=== PATIENT | male | born 1965 | race Caucasian/White ===

== ENCOUNTER 2016-10-27 16:38 | Emergency (ER) | payer OTHER ==
[2016-10-27 16:39] VITALS: BMI 34.3
[2016-10-27 17:00] VITALS: O2SAT 98
--- NOTE | 2016-10-27 19:41 | C.PDOC ---
History Of Present Illness Patient presents to the ER with a complaint of a headache, photophobia, and abdominal pain for the past 3 weeks. Denies any nausea, vomiting, diarrhea, fever or chills. Time Seen by Provider: 10/27/16 19:41 Chief Complaint (Nursing): Headache History Per: Patient History/Exam Limitations: no limitations Onset/Duration Of Symptoms: Days (3 weeks) Severity: Moderate Pain Scale Rating Of: 4 Associated Symptoms: Photophobia. denies: Nausea, Vomiting Past Medical History Reviewed: Historical Data, Nursing Documentation, Vital Signs Vital Signs: Last Vital Signs Temp 98.1 F 10/27/16 16:58 Pulse 80 10/27/16 16:58 Resp 20 10/27/16 16:58 BP 132/82 10/27/16 16:58 Pulse Ox 98 10/27/16 20:18 Surgical History: Back Surgery Family History: States: No Known Family Hx - Social History Hx Tobacco Use: Yes (3 cig daily) Hx Alcohol Use: No Hx Substance Use: No - Immunization History Hx Tetanus Toxoid Vaccination: No Hx Influenza Vaccination: No Hx Pneumococcal Vaccination: No Review Of Systems Constitutional: Negative for: Fever, Chills Gastrointestinal: Positive for: Abdominal Pain. Negative for: Nausea, Vomiting , Diarrhea Physical Exam - Physical Exam Appears: Non-toxic Skin: Warm, Dry Oral Mucosa: Moist Chest: Symmetrical Cardiovascular: Rhythm Regular Respiratory: No Rales, No Rhonchi, No Wheezing Gastrointestinal/Abdominal: Soft, Tenderness (Mild, mid epigastric), No Distention, No Guarding, No Rebound Neurological/Psych: Oriented x3 ED Course And Treatment - Laboratory Results Result Diagrams: 10/27/16 19:59 10/27/16 19:59 ECG: Interpreted By Me, Viewed By Me ECG Rhythm: Sinus Rhythm (79), Nonspecific Changes O2 Sat by Pulse Oximetry: 98 (Room air) Pulse Ox Interpretation: Normal Progress Note: CT of head w/o contrast, urinalysis, and blood work ordered. Solu -medrol IVP and zofran IVP administered. Reevaluation Time: 22:21 Reassessment Condition: Improved Medical Decision Making Medical Decision Making: Upon provider reevaluation patient is feeling better, is medically stable, and requires no further treatment in the ED at this time. Patient will be discharged home with Rx for zofran and naproxyn. Counseling was provided and all questions were answered regarding diagnosis and need for follow up with the referred clinic. There is agreement to discharge plan. Return if symptoms persist or worsen. Disposition Counseled Patient/Family Regarding: Studies Performed, Diagnosis, Need For Followup, Rx Given - Disposition Referrals: [facility] [Outside] Disposition: HOME/ ROUTINE Disposition Time: 19:41 Condition: FAIR Prescriptions: Naproxen [Naprosyn] 1 tab PO BID PRN #25 tab PRN Reason: Pain Ondansetron ODT [Zofran ODT] 1 odt PO BID PRN #10 odt PRN Reason: Nausea/Vomiting Instructions: Acute Headache (DC), Abdominal Pain (ED), Gas and Bloating (ED) Print Language: TURKISH - Clinical Impression Clinical Impression: Headache, Abdominal pain - Scribe Statement The provider has reviewed the documentation as recorded by the Littleibmanpreet Masters All medical record entries made by the Littleibmanpreet were at my direction and personally dictated by me. I have reviewed the chart and agree that the record accurately reflects my personal performance of the history, physical exam, medical decision making, and the department course for this patient. I have also personally directed, reviewed, and agree with the discharge instructions and disposition.
[2016-10-27 20:02] LABS: BASO # 0.1 K/uL (0.0-0.2); BASO % 1.2 % (0.0-2.0); EOS # 0.2 K/uL (0.0-0.7); EOS % 2.3 % (0.0-4.0); HEMATOCRIT 43.1 % (35.0-51.0); LYMPH # 2.8 K/uL (1.0-4.3); MEAN CELL VOLUME 86.7 fL (80.0-94.0); MEAN CORPUSCULAR HEMOGLOBIN 29.7 pg (27.0-31.0); MEAN CORPUSCULAR HGB CONC 34.3 g/dL (33.0-37.0); MEAN PLATELET VOLUME 8.3 fL (7.2-11.7); MONO # 0.9 K/uL (0.0-0.8); MONO % 11.8 % (0.0-10.0); RED CELL DISTRIBUTION WIDTH 12.9 % (11.5-14.5); WHITE BLOOD COUNT 7.3 K/uL (4.8-10.8)
[2016-10-27 20:08] LABS: CHLORIDE 102 mmol/L (98-107); SODIUM 139 mmol/L (132-148)
[2016-10-27 20:09] LABS: POTASSIUM 4.1 mmol/L (3.6-5.2)
[2016-10-27 20:11] LABS: ALB/GLOB RATIO 1.5 (1.0-2.1); ALKALINE PHOSPHATASE 89 U/L (38-126); ALT/SGPT 35 U/L (21-72); AST/SGOT 32 U/L (17-59); BILIRUBIN,TOTAL 1.1 mg/dL (0.2-1.3); BLOOD UREA NITROGEN 16 mg/dL (9-20); CARBON DIOXIDE 24 mmol/L (22-30); GFR AFRICAN-AMERICAN > 60; GLUCOSE,RANDOM 100 mg/dL (75-110); TOTAL PROTEIN 6.1 g/dL (6.3-8.3)
[2016-10-27 20:12] LABS: CALCIUM 7.8 mg/dl (8.6-10.4)
[2016-10-27 22:40] VITALS: BP 115/68; PULSE 73; RESP 18; TEMP 98.3
--- NOTE | 2016-10-28 08:34 | CT ---
PROCEDURE: CT HEAD WITHOUT CONTRAST. HISTORY: Headache COMPARISON: None available. TECHNIQUE: Axial computed tomography images were obtained through the head/brain without intravenous contrast. Radiation dose: Total exam DLP = eight hundred seventy-four mGy-cm. This CT exam was performed using one or more of the following dose reduction techniques: Automated exposure control, adjustment of the mA and/or kV according to patient size, and/or use of iterative reconstruction technique. FINDINGS: HEMORRHAGE: No intracranial hemorrhage. BRAIN: No mass effect or edema. No atrophy or chronic microvascular ischemic changes. VENTRICLES: Unremarkable. No hydrocephalus. CALVARIUM: Unremarkable. PARANASAL SINUSES: Unremarkable as visualized. No significant inflammatory changes. MASTOID AIR CELLS: Unremarkable as visualized. No inflammatory changes. OTHER FINDINGS: None. IMPRESSION: No acute intracranial abnormality. If focal neurologic deficit persists, consider MRI. These findings were preliminarily reported at 8:30 p.m. on 10/27/[address] Delmy English from [facility].
== END 2016-10-27 22:42 | disposition home or self-care (01) ==
LOC: C.ER 16:38
DX: R51 Headache (principal); R10.13 Epigastric pain
CPT/HCPCS: 70450; 80053; 85025; 96374; 96375; 99284; J1885; J2405; J2930